=== PATIENT | female | born 1985 | race Caucasian/White ===

== ENCOUNTER 2018-03-18 11:05 | Emergency (ER) | payer OTHER ==
[~2018-03-18] VITALS: Ht 170.2 cm; Wt 54.0 kg
[2018-03-18] VITALS (7 sets, daily range): BP systolic 95–115; BP diastolic 46–95; PULSE 87–95; RESP 16; TEMP 98.9–101.3; O2SAT 16–100
[2018-03-18] MEDS ORDERED: CYMB60CA PO (11:27)
[2018-03-18] MEDS ORDERED: ZOLO25TA PO (11:27)
[2018-03-18] MEDS ORDERED: BUSP5TAB PO (11:27)
[2018-03-18] MEDS ORDERED: BUSP10TA PO (11:31)
[2018-03-18] MEDS ORDERED: DULoxetine HCl DR 30 MG CAP PO ONE (11:45)
[2018-03-18] MEDS ORDERED: SODIUM CHLOR 0.9% 1000 ML INJ 1,000 ML IV ONE ×2 (11:45→14:45)
[2018-03-18] MEDS ORDERED: ACETAMINOPHEN 325 MG TAB PO ONE (11:45)
--- NOTE | 2018-03-18 11:58 | PD ---
HPI Chief Complaint: Pain: Acute or Chronic Time Seen by Provider: 11:33 Travel History International Travel<30 days: No Contact w/Intl Traveler<30days: No Traveled to known affect area: No History of Present Illness HPI Patient presents to the emergency department complaining of fever and chills since yesterday. She denies recent travel or known sick contacts. Reporting productive cough with yellow phlegm and rhinorrhea with yellow nasal discharge, sore throat, nausea, and pain from fibromyalgia. She denies any new pain, states the pain that she feels is consistent with her fibromyalgia pain. She denies vomiting, diarrhea, chest pain, shortness of breath, abdominal pain, dysuria, headache, rash, no vaginal discharge, not sexually active. Reports that she was walking to the restroom this morning and she felt dizzy and her vision went black for less than 1 minute at approximately 10:30 AM today. She did not take her Cymbalta for fibromyalgia pain today. She also states that she has not had a menstrual period since April of last year because she is on Depakote, and last shot was in September 2017. Of note the triage note states that she has abdominal pain, but she denies to me. PFSH Past Medical History Anxiety: Yes Depression: Yes Fibromyalgia: Yes Tetanus Vaccination: Unknown Influenza Vaccination: No ?: Not LMP: 04/2017 DEPO SHOT Past Surgical History Tympanostomy Tube: Yes Social History Alcohol Use: No Tobacco Use: No Substance Use: No Allergies-Medications (Allergen,Severity, Reaction): Coded Allergies: Sulfa (Sulfonamide Antibiotics) (Verified Allergy, Severe, Hives, 03/18/18) Reported Meds & Prescriptions Reported Meds & Active Scripts Active Augmentin (Amoxicillin-Clavulanate) 875-125 Mg Tab 1 Tab PO BID 7 Days Reported Buspirone (Buspirone HCl) 10 Mg Tab 10 Mg PO DAILY Zoloft (Sertraline HCl) 25 Mg Tab 25 Mg PO DAILY Cymbalta DR (Duloxetine HCl) 60 Mg Capdr 60 Mg PO DAILY Review of Systems Except as stated in HPI: all other systems reviewed are Neg Physical Exam Narrative GENERAL: No acute distress. Patient is sitting up in bed and looks extremely well. SKIN: Focused skin assessment warm/dry. Warm to touch. HEAD: Atraumatic. Normocephalic. Positive frontal and maxillary sinus tenderness. EYES: Ocular muscles intact bilaterally. No scleral icterus. No injection or drainage. ENT: No nasal bleeding or discharge. Mucous membranes pink and moist. Throat erythematous without exudate. TMs clear bilaterally. NECK: Trachea midline. No JVD. CARDIOVASCULAR: Regular rate and rhythm. + murmur appreciated. RESPIRATORY: No accessory muscle use. Clear to auscultation. Breath sounds equal bilaterally. GASTROINTESTINAL: Abdomen soft, non-tender, nondistended. Hepatic and splenic margins not palpable. MUSCULOSKELETAL: No obvious deformities. No clubbing. No cyanosis. No edema. NEUROLOGICAL: Awake and alert. No obvious cranial nerve deficits. Motor grossly within normal limits. Normal speech. PSYCHIATRIC: Appropriate mood and affect; insight and judgment normal. Data Data Last Documented VS Vital Signs Date Time Temp Pulse Resp B/P (MAP) Pulse Ox O2 Delivery O2 Flow Rate FiO2 03/18/18 13:26 98.9 16 98/46 (63) 98 Room Air 03/18/18 12:42 83 93 Orders Orders Complete Blood Count With Diff (03/18/18 11:45) Comprehensive Metabolic Panel (03/18/18 11:45) Urinalysis - C+S If Indicated (03/18/18 11:45) Group A Rapid Strep Screen (03/18/18 11:45) Influenzae A/B Antigen (03/18/18 11:45) Chest, Pa & Lat (03/18/18 11:45) Iv Access Insert/Monitor (03/18/18 11:45) Ecg Monitoring (03/18/18 11:45) Oximetry (03/18/18 11:45) Orthostatic Vital Signs (03/18/18 11:45) Ed Urine Pregnancytest Poc (03/18/18 11:45) Sodium Chlor 0.9% 1000 Ml Inj (Ns 1000 M (03/18/18 11:45) Duloxetine Dr (John Fajardo) (03/18/18 11:45) Acetaminophen (Tylenol) (03/18/18 11:45) Strep Culture (Group A) (03/18/18 12:15) Blood Culture (03/18/18 12:54) Ct Brain W/O Iv Contrast(Rout) (03/18/18 12:56) Potassium Chloride (Kcl) (03/18/18 13:15) Sodium Chlor 0.9% 1000 Ml Inj (Ns 1000 M (03/18/18 14:45) Labs Laboratory Tests Test 03/18/18 12:15 03/18/18 12:20 White Blood Count 13.6 TH/MM3 Red Blood Count 4.16 MIL/MM3 Hemoglobin 12.1 GM/DL Hematocrit 36.1 % Mean Corpuscular Volume 86.9 FL Mean Corpuscular Hemoglobin 29.1 PG Mean Corpuscular Hemoglobin Concent 33.4 % Red Cell Distribution Width 12.2 % Platelet Count 215 TH/MM3 Mean Platelet Volume 6.2 FL Neutrophils (%) (Auto) 91.6 % Lymphocytes (%) (Auto) 3.7 % Monocytes (%) (Auto) 3.3 % Eosinophils (%) (Auto) 0.2 % Basophils (%) (Auto) 1.2 % Neutrophils # (Auto) 12.5 TH/MM3 Lymphocytes # (Auto) 0.5 TH/MM3 Monocytes # (Auto) 0.4 TH/MM3 Eosinophils # (Auto) 0.0 TH/MM3 Basophils # (Auto) 0.2 TH/MM3 CBC Comment DIFF FINAL Differential Comment Blood Urea Nitrogen 12 MG/DL Creatinine 0.76 MG/DL Random Glucose 129 MG/DL Total Protein 7.5 GM/DL Albumin 3.8 GM/DL Calcium Level 8.6 MG/DL Alkaline Phosphatase 43 U/L Aspartate Amino Transf (AST/SGOT) 14 U/L Alanine Aminotransferase (ALT/SGPT) 12 U/L Total Bilirubin 0.7 MG/DL Sodium Level 138 MEQ/L Potassium Level 3.3 MEQ/L Chloride Level 107 MEQ/L Carbon Dioxide Level 25.0 MEQ/L Anion Gap 6 MEQ/L Estimat Glomerular Filtration Rate 89 ML/MIN Urine Collection Type CLEAN CATCH Urine Color YELLOW Urine Turbidity CLEAR Urine pH 7.0 Urine Specific [place] 1.020 Urine Protein 100 mg/dL Urine Glucose (UA) NEG mg/dL Urine Ketones 40 mg/dL Urine Occult Blood NEG Urine Nitrite NEG Urine Bilirubin NEG Urine Urobilinogen 1.0 MG/DL Urine Leukocyte Esterase NEG Urine Squamous Epithelial Cells 6-8 /hpf Urine Amorphous Sediment FEW Microscopic Urinalysis Comment CULT NOT INDICATED Urine Collection Time 1200 MDM Medical Decision Making Medical Screen Exam Complete: Yes Emergency Medical Condition: Yes Interpretation(s) flu and rapid strep-negative; elevated wbc count, decreased potassium; bd cultures pending Last Impressions Chest X-Ray 03/18/18 1145 Signed Impressions: Service Date/Time: Sunday, March 18, 2018 12:00 - CONCLUSION: Normal examination. Kim Teran MD CT head: FINDINGS: CEREBRUM: The ventricles are normal for age. No evidence of midline shift, mass lesion, hemorrhage or acute infarction. No extra-axial fluid collections are seen. POSTERIOR FOSSA: The cerebellum and brainstem are intact. The 4th ventricle is midline. The cerebellopontine angle is unremarkable. EXTRACRANIAL: The visualized portion of the orbits is intact. SKULL: The calvaria is intact. Minimal left maxillary sinus disease No evidence of skull fracture. CONCLUSION: Negative for acute process. minimal left maxillary sinus disease Differential Diagnosis Flu, viral illness, pneumonia, viral or bacterial pharyngitis Narrative Course Patient presents to the emergency department complaining of fever and chills since yesterday, productive cough, rhinorrhea, nausea, sore throat. Also states that she felt dizzy while ambulating this morning and her vision went black for less than 1 minute at that time. She presents to the emergency department febrile slightly hypotensive at 109/95, mainly vital signs stable. Will check CBC, chemistry, influenza, rapid strep, UA and culture, chest x-ray, orthostats, bd cx. Will give 1 L IV normal saline, Tylenol 650 mg p.o., and her Cymbalta 60 mg. [id number] negative in ER. 1258: ortostats lying 95/56, 83; stand or sit 115/62, 93. Given 20MEQ po KCl. 1445: Patient given another liter of IV NS. BP 110/50, temp 98.9, patient in no acute distress, feels better, looks extremely well. Will d/c with augmentin x 7 days. 1524: Patient finsihed 2nd liter of fluids. States "I'm ready to go, I'm hungry. " She looks well, Sepsis Criteria SIRS Criteria (2 or more): Temp > 100.9 or < 96.8, Heart rate over 90, WBC > 52306, < 4000 or > 10% bands Diagnosis Primary Impression: Sinusitis Qualified Codes: J01.00 - Acute maxillary sinusitis, unspecified Additional Impression: Fever Qualified Codes: R50.9 - Fever, unspecified Patient Instructions: General Instructions Additional Instructions: 1. Meds as directed 2. Return to ER immediately for fever, vomiting, chest pain , abdominal pain, or for any new/worrisome/worsening symptoms. 3. Followup with primary care doctor in 24-48 hours. Med/Other Pt SpecificInfo: Prescription(s) given Scripts Amoxicillin-Clavulanate (Augmentin) 875-125 Mg Tab 1 TAB PO BID for Infection for 7 Days, #14 TAB 0 Refills Prov: Izabela Espinosa MD 03/18/18 Disposition: 01 DISCHARGE HOME Condition: Stable Izabela Espinosa MD March 18, 2018 11:58
--- NOTE | 2018-03-18 12:11 | RADRPT ---
EXAM DATE/TIME: 03/18/2018 12:00 [facility] COMPARISON: No previous studies available for comparison. INDICATIONS : Fever, cough MEDICAL HISTORY : None. SURGICAL HISTORY : None. ENCOUNTER: Initial ACUITY: 1 day PAIN SCORE: 0/10 LOCATION: Bilateral chest TECH NOTE: Denies , shield YASH Singh MR#[id number] :87 Exam date/desc:March 18, 2018[facility] PA & LAT FINDINGS: PA and lateral views of the chest demonstrate the lungs to be symmetrically aerated without evidence of mass, infiltrate or effusion. The cardiomediastinal contours are unremarkable. Osseous structure s are intact. CONCLUSION: Normal examination. Kim Teran MD on March 18, 2018 at 12:08 Board Certified Radiologist. This report was verified electronically.
[2018-03-18 12:27] LABS: AUTOMATED NEUTROPHIL # 12.5 TH/MM3 (1.8-7.7); BASOPHIL # 0.2 TH/MM3 (0-0.2); BASOPHIL % 1.2 % (0.0-2.0); EOSINOPHIL % 0.2 % (0.0-4.0); HEMATOCRIT 36.1 % (35.0-46.0); HEMOGLOBIN 12.1 GM/DL (11.6-15.3); LYMPH % 3.7 % (9.0-44.0); LYMPHOCYTE # 0.5 TH/MM3 (1.0-4.8); MEAN CELL VOLUME 86.9 FL (80.0-100.0); MEAN CORPUSCULAR HEMOGLOBIN 29.1 PG (27.0-34.0); MEAN CORPUSCULAR HGB CONC 33.4 % (32.0-36.0); MEAN PLATELET VOLUME 6.2 FL (7.0-11.0); MONO % 3.3 % (0.0-8.0); MONOCYTE # 0.4 TH/MM3 (0-0.9); NEUT % 91.6 % (16.0-70.0); PLATELET COUNT 215 TH/MM3 (150-450); RED BLOOD COUNT 4.16 MIL/MM3 (4.00-5.30); RED CELL DISTRIBUTION WIDTH 12.2 % (11.6-17.2); WHITE BLOOD COUNT 13.6 TH/MM3 (4.0-11.0)
[2018-03-18 12:34] LABS: BLOOD, URINE NEG (NEG); GLUCOSE,URINE NEG (NEG); KETONE, URINE 40 mg/dL (NEG); NITRITE,URINE NEG (NEG); URINE COLOR YELLOW (YELLW/STRAW); URINE LEUKOCYTE ESTERASE NEG (NEG)
[2018-03-18 12:37] LABS: CHLORIDE 107 MEQ/L (98-107); SODIUM (NA) 138 MEQ/L (136-145)
[2018-03-18 12:37] LABS: BILIRUBIN, URINE NEG (NEG)
[2018-03-18 12:40] LABS: CALCIUM 8.6 MG/DL (8.5-10.1)
[2018-03-18 12:41] LABS: ALBUMIN 3.8 GM/DL (3.4-5.0); BLOOD UREA NITROGEN 12 MG/DL (7-18); GLUCOSE,RANDOM 129 MG/DL (74-106)
[2018-03-18 12:44] LABS: ALT (GPT) 12 U/L (10-53); AST (GOT) 14 U/L (15-37); CREATININE 0.76 MG/DL (0.50-1.00); GLOMERULAR FILTRATION RATE 89 ML/MIN (>89)
[2018-03-18 12:45] LABS: TOTAL BILIRUBIN ADULT 0.7 MG/DL (0.2-1.0); TOTAL PROTEIN 7.5 GM/DL (6.4-8.2)
[2018-03-18 12:47] LABS: ALKALINE PHOSPHATASE 43 U/L (45-117)
[2018-03-18 12:48] LABS: AMORPHOUS SEDIMENT, URINE FEW
[2018-03-18] MEDS ORDERED: POTASSIUM CHLORIDE 20 MEQ CONTROLLED RELEASE TAB PO ONE (13:15)
--- NOTE | 2018-03-18 14:25 | RADRPT ---
EXAM DATE/TIME: 03/18/2018 14:07 [facility] COMPARISON: No previous studies available for comparison. INDICATIONS : Dizziness today. RADIATION DOSE: 49.99 CTDIvol (mGy) MEDICAL HISTORY : None SURGICAL HISTORY : tympanostomy tube ENCOUNTER: Initial ACUITY: 1 day PAIN SCALE: 0/10 LOCATION: Bilateral head TECHNIQUE: Multiple contiguous axial images were obtained of the head. Using automated exposure control and adj ustment of the mA and/or kV according to patient size, radiation dose was kept as low as reasonably a chievable to obtain optimal diagnostic quality images. DICOM format image data is available electro nically for review and comparison. FINDINGS: CEREBRUM: The ventricles are normal for age. No evidence of midline shift, mass lesion, hemorrhage or acute in farction. No extra-axial fluid collections are seen. POSTERIOR FOSSA: The cerebellum and brainstem are intact. The 4th ventricle is midline. The cerebellopontine angle i s unremarkable. EXTRACRANIAL: The visualized portion of the orbits is intact. SKULL: The calvaria is intact. Minimal left maxillary sinus disease No evidence of skull fracture. CONCLUSION: Negative for acute process. minimal left maxillary sinus disease Kam Pickens MD FACR on March 18, 2018 at 14:22 Board Certified Radiologist. This report was verified electronically.
[2018-03-18] MEDS ORDERED: AUGM875T3 PO (14:49)
== END 2018-03-18 15:55 | disposition home or self-care (01) ==
LOC: PHED 11:05
DX: J01.00 Acute maxillary sinusitis, unspecified (principal); F41.9 Anxiety disorder, unspecified; F32.9 Major depressive disorder, single episode, unspecified; M79.7 Fibromyalgia
CPT/HCPCS: 70450; 71046; 80053; 81001; 84703; 85025; 87040; 87081; 87804; 87880; 96360; 96361; 99285; J7030